=== PATIENT | female | born 1980 ===

== ENCOUNTER 2017-11-10 06:58 | Day surgery (SDC) | payer OTHER ==
[2017-11-10 07:25] VITALS: BMI 34.9
[2017-11-10] MEDS ORDERED: Propofol 10 mg/ml Inj (20 ML) ONE (08:46)
--- NOTE | 2017-11-10 08:50 | CP.SDSHP ---
Same Day Surgery H & P - History Proposed Procedure: colonoscopy Pre-Op Diagnosis: diverticulitis, resolved (third bout) - Previous Medical/Surgical History Cardiac: Hypertension Pulmonary: Asthma Endocrine/Metabolic: Obesity Misc: Other (PCOS, Diverticulitis, ) Previous Surgical History: Ablation of PCOS. C section - Allergies Allergies: Allergies No Known Allergies Allergy (Verified 11/10/17 07:21) - Physical Exam Vital Signs: Vital Signs 11/10/17 07:29 Temperature 97.8 F Pulse Rate 62 Respiratory 19 Rate Blood Pressure 114/71 O2 Sat by Pulse 99 Oximetry Mental Status: Alert & Oriented x3 Neuro: WNL Heart: WNL Lungs: WNL GI: WNL - Impression Impression: Diverticulitis, follow up after multiple bouts Pt. Evaluated Today:Candidate for Anesthesia & Procedure: Yes - Date & Time Date: 11/10/17 Time: 08:51 Short Stay Discharge - Short Stay Discharge Admitting Diagnosis/Reason for Visit: DIVERTICULITIS / LEFT LOWER QUADRANT PAIN Disposition: HOME/ ROUTINE
[2017-11-10 11:14] VITALS: TEMP 97.1
[2017-11-10 11:23] VITALS: BP 104/59; PULSE 61; RESP 14; O2SAT 99
== END 2017-11-10 10:35 | disposition home or self-care (01) ==
LOC: C.ENDO 06:58
PROVIDERS: ATTEND Internal Medicine Gastroenterology
DX: Z09 Encounter for follow-up examination after completed treatment for conditions other than malignant neoplasm (principal); R10.32 Left lower quadrant pain; K57.30 Diverticulosis of large intestine without perforation or abscess without bleeding; K64.1 Second degree hemorrhoids; E66.9 Obesity, unspecified; Z68.34 Body mass index [BMI] 34.0-34.9, adult; J45.909 Unspecified asthma, uncomplicated; I10 Essential (primary) hypertension; K63.5 Polyp of colon; Z87.19 Personal history of other diseases of the digestive system
CPT/HCPCS: 45380; 84703; 88305; J2704